=== PATIENT | female | born 1935 | race Caucasian/White ===

== ENCOUNTER → 2018-02-09 | Outpatient (CLI) | END | disposition home or self-care (01) ==

== ENCOUNTER → 2018-04-27 | Outpatient (CLI) | END | disposition home or self-care (01) ==

== ENCOUNTER → 2018-04-30 | Outpatient (CLI) | END | disposition home or self-care (01) ==

== ENCOUNTER 2018-05-07 08:06 | Observation (INO) | END 2018-05-09 15:55 | disposition home health service (06) ==

== ENCOUNTER → 2018-05-18 | Outpatient (CLI) | END | disposition home or self-care (01) ==

== ENCOUNTER → 2018-06-15 | Outpatient (CLI) | END | disposition home or self-care (01) ==

== ENCOUNTER → 2018-10-05 | Outpatient (CLI) | END | disposition home or self-care (01) ==